=== PATIENT | female | born 1985 | race Hispanic/Latino ===

== ENCOUNTER 2017-03-19 21:49 | Day surgery (SDC) | payer OTHER, SELFPAY ==
[2017-03-19 22:36] LABS: #Basophils 0.1 thou/uL (0.0-0.2); #Eosinphils 0.1 thou/uL (0.0-0.7); #Lymphocytes 3.8 thou/uL (1.20-3.40); #Monocytes 0.7 thou/uL (0.11-0.59); #Neutrophils 6.2 thou/uL (1.40-6.50); %Basophils 0.6 % (0.0-1.0); %Eosinophils 1.1 % (0.0-10.0); %Lymphocytes 34.9 % (21.0-51.0); %Monocytes 6.6 % (0.0-10.0); %Neutrophils 56.8 % (42.0-75.0); Hemoglobin 10.5 g/dL (12.0-16.0); Mean Corpuscular Hemoglobin 25.1 pg (27.0-31.0); Mean Corpuscular Volume 78.5 fl (81.0-99.0); Mean Platelet Volume 9.2 fL (7.4-10.4); Platelet Count 267 thou/uL (130-400); Red Blood Cell (RBC) Count 4.19 mill/uL (4.20-5.40); White Blood Cell (WBC) Count 10.9 thou/uL (4.8-10.8)
[2017-03-19] MEDS ORDERED: Morphine 4 MG/ML VIAL ONE (22:47)
[2017-03-19 22:57] LABS: ALT (SGPT) 15 U/L (8-55); AST (SGOT) 15 U/L (5-34); Alkaline Phosphatase 89 U/L (40-150); Anion Gap 12 mmol/L (10-20); BUN (Urea Nitrogen) 10 mg/dL (7.0-18.7); Bilirubin, Total 0.2 mg/dL (0.2-1.2); Calc. Creatinine Clearance 0 mL/min (70-130); Calcium 8.9 mg/dL (7.8-10.44); Carbon Dioxide 21 mmol/L (22-29); Chloride 107 mmol/L (98-107); Estimated GFR-MDRD Greater than 90; Globulin 3.2 g/dL (2.4-3.5); Glucose 109 mg/dL (70-105); Lipase 12 U/L (8-78); Potassium 3.5 mmol/L (3.5-5.1); Protein, Total 7.2 g/dL (6.0-8.3); Sodium 136 mmol/L (136-145)
[2017-03-20] MEDS ORDERED: Bupivacaine/Epinephrine 0.25% 30 ML VIAL ONE (00:59)
[2017-03-20] MEDS ORDERED: Fentanyl 100 MCG/2 ML VIAL ONE (01:21)
[2017-03-20 01:34] LABS: Hemoglobin 8.7 g/dL (12.0-16.0)
[2017-03-20 01:46] LABS: INR-International Normal Ratio 1.1; PTT 26.7 SEC (22.9-36.1); Prothrombin Time 13.8 SEC (12.0-14.7)
--- NOTE | 2017-03-20 03:15 | HP ---
DATE OF ADMISSION: 03/20/2017 TIME OF SERVICE: 0100 REASON FOR ADMISSION: Possible ectopic . HISTORY OF PRESENT ILLNESS: Ms. Gonzalez is a 31-year-old 3, para 2 who reports approximatel y 8 weeks of amenorrhea. She reports sudden onset of right lower quadrant pain, but then became more diffuse abdominal tonight around 2100 hours. The patient states she has had a positive te st for several weeks and has had some spotting as well. OB AND LANE ATTENDANT HISTORY: x2, previous shoulder dystocia and previous normal delivery with induction o f labor. Denies history of abnormal Pap. Positive history of chlamydia in the past. PAST MEDICAL HISTORY: Denies. PAST SURGICAL HISTORY: Denies. ALLERGIES: The reports PENICILLIN allergy that she had a rash when she took at age 17. She denies s hortness of breath, swelling of face, mouth, lips or tongue or wheezing with this allergic reaction. She is uncertain as to whether or not she has had cephalosporins in the past. MEDICATIONS: None. SOCIAL HISTORY: Denies tobacco, alcohol or IV drug abuse. FAMILY HISTORY: Noncontributory. REVIEW OF SYSTEMS: Noncontributory. PHYSICAL EXAMINATION: GENERAL: Obese female in no acute distress at this time, status post 4 mg of morphine in th e ER. VITAL SIGNS: Her pulse is 82, her blood pressure is 100/50, respirations 18. HEENT: Within normal limits. LUNGS: Clear to auscultation bilaterally. HEART: Regular rhythm. ABDOMEN: Diffuse, guarding and discomfort on exam, especially noticeable in lower quadrants. PELVIC: Vulva is without lesions. Vagina without discharge. Speculum exam deferred. EXTREMITIES: Without clubbing, cyanosis or edema. LABORATORY STUDIES: Beta hCG was 29,000. Base met is within normal limits and her hematocrit is 33% with normal platelet count and normal white count. RADIOLOGY: The patient had an ultrasound performed both abdominally and vaginally technique is excep tionally poor; however, the uterus appears to be perhaps somewhat inhomogeneous, but no defined gesta tional sac. Her IUP is noted, there appears to be some free fluid in the adnexa with the preponderan ce of mixed echotextures in the adnexa, right greater than left. IMPRESSION: Probable right ectopic , although with poor technique ultrasound that the possi bility of a ruptured hemorrhagic corpus luteum cyst and a nonviable missed AB cannot be ruled out. PLAN: We will consent the patient for laparoscopic salpingectomy and D&C, typed and crossed for 1 un it and take the patient to the operating room for these procedures. We will administer Ancef for anita gical prophylaxis.
--- NOTE | 2017-03-20 03:34 | OP ---
DATE OF PROCEDURE: 03/20/2017 PREOPERATIVE DIAGNOSES: Suspected hemoperitoneum with ruptured right ectopic . POSTOPERATIVE DIAGNOSES: Suspected hemoperitoneum with ruptured right ectopic . PROCEDURE: Laparoscopic right distal salpingectomy for ectopic, ruptured. SURGEON: Rodger Ling M.D. SUPERVISOR STITCHING DEPARTMENT: Rachel Castaneda M.D., PGY-3. ANESTHESIA: Paul Leonard M.D., General endotracheal. ESTIMATED BLOOD LOSS: 100 mL intraoperatively, 1000 mL hemoperitoneum. MEDICATIONS: Two grams Ancef preincision. DVT PROPHYLAXIS: SCDs. OPERATIVE FINDINGS: 1. Approximately 1000 mL hemoperitoneum at entry into the abdominal cavity with active bleeding from the right distal fallopian tube. 2. Approximately 2-3 cm mass in the right distal fallopian tube consistent with a ruptured ectopic p regnancy. 3. Normal appearing left tube and ovary. 4. Normal appearing liver edge, gallbladder. 5. Hemostasis with counts correct at the end of the procedure. DISPOSITION: Recovery room, day stay and discharged home in good condition. Follow up at [facility] in 3-5 weeks. DESCRIPTION OF OPERATIVE PROCEDURE: After obtaining proper informed consent, the patient was taken t o the operating room where general endotracheal anesthesia was achieved without difficulty. Patient was prepped and draped in dorsal lithotomy in Steve stirrups. Five mL of Marcaine injected at the ba se of umbilicus and a 5 mm incision made. Veress needle placed inside the abdominal cavity. Confirm ation of entry into the peritoneal cavity via a saline drop test. Insufflation carried out with carb on dioxide to a max pressure of 15, volume approximately 3.5 liters. Once this pressure was obtained a 5 mm trocar using Optiview technique was introduced in the abdominal cavity confirming entry into the peritoneal cavity without trauma to underlying viscera. A large amount of blood in the pelvis wa s noted. The patient was placed in steep Trendelenburg position, right and left lateral trocars late ral to the epigastric vessels were placed without difficulty and a 10 mm noncutting trocar on the pat ient's left and a 5 mm on the right. Suction irrigation was carried out and the operative findings w ere noted. The distal aspect of the right fallopian tube was the obvious source of the bleeding and still had an ectopic inside which was photo documented. It was elevated using atraumatic g raspers and then using the LigaSure device, the mesosalpinx was coagulated and transected removing th e specimen. The specimen was then retrieved in the specimen retrieval bag and sent for pathologic an alysis. Further suction irrigation and inspection was carried out. The findings as noted the operat nikos findings were noted. No areas of bleeding were noted and coagulated mesosalpinx of the right fal lopian tube and no other sources of bleeding were noted. The abdomen was desufflated of carbon dioxi de. Trocars removed x3. Skin reapproximated x3 using 4-0 Monocryl and Dermabond and the patient wan kened, extubated, and taken to recovery room in good condition. The patient tolerated the procedure well.
--- NOTE | 2017-03-20 08:04 | ULT ---
PRELIMINARY REPORT/[facility]/EMERGENCY AFTER HOURS PROCEDURE: EXAM: US Uterus, Limited CLINICAL HISTORY: 31 years old, female; Pain and signs and symptoms; Lmp or gestational age (in weeks): Unknown; Antepa rtum complications; Bleeding; complicated by abdominal or pelvic pain; Other: Ml abd to ml pelvic; ; Patient HX: Hcg 73543, pain, bleeding TECHNIQUE: Real-time ultrasound of the maternal uterus (limited) with image documentation. COMPARISON: No relevant prior studies available. FINDINGS: Fetus: There is a heterogeneous soft tissue mass extending from the LEFT to RIGHT adnexa measuring ap proximately 15 cm with scattered foci of flow suspicious for ruptured ectopic . Uterus: The uterus measures 11.9 x 6.5 x 7.1 cm. No intrauterine gestation. Adnexa: The bilateral ovaries not visualized. Free fluid: There is complex fluid in the cul-de-sac. Bladder: There is nonspecific debris in the urinary bladder. IMPRESSION: 1. Findings suspicious for ectopic . 2. There is nonspecific debris in the urinary bladder. EXAM: US , Transvaginal EXAM DATE/TIME: Exam ordered 03/20/2017 12:16 AM CLINICAL HISTORY: 31 years old, female; Pain and signs and symptoms; Lmp or gestational age (in weeks): Unknown; Antepa rtum complications; Bleeding; complicated by abdominal or pelvic pain; Other: Ml abd to ml pelvic; ; Patient HX: Hcg 94918, pain, bleeding TECHNIQUE: Real-time transvaginal obstetrical ultrasound of the maternal pelvis and a first trimester with image documentation. Transvaginal imaging was used for better evaluation of the fetus and adnexa . COMPARISON: No relevant prior studies available. FINDINGS: Gestation: There is a heterogeneous soft tissue mass extending from the LEFT to RIGHT adnexa measurin g approximately 15 cm with scattered foci of flow suspicious for ruptured ectopic . Uterus/cervix: The uterus measures 11.9 x 6.5 x 7.1 cm. No intrauterine gestation. Ovaries: The bilateral ovaries not visualized. Free fluid: There is complex fluid in the cul-de-sac. Bladder: There is nonspecific debris in the urinary bladder. IMPRESSION: 1. Findings suspicious for ectopic . 2. There is nonspecific debris in the urinary bladder. THIS REPORT CONTAINS FINDINGS THAT MAY BE CRITICAL TO PATIENT CARE. The findings were verbally commun icated via telephone conference with Dr Rand at 1:05 AM GENERAL INTERNAL MEDICINE PHYSICIAN on 03/20/2017. The findings were ackn owledged and understood. Thank you for allowing us to participate in the care of your patient. Dictated and Authenticated by: Juan Edwards MD 03/20/2017 1:08 AM Central Time ([place] & [place]) FINAL REPORT TRANSABDOMINAL AND TRANSVAGINAL PELVIC ULTRASOUND: (MOY SCALE, COLOR FLOW, AND SPECTRAL DOPPLER) I agree with the preliminary report given by Dr. Juan Edwards of [facility]. POS: [facility]
[2017-03-20] MEDS ORDERED: Ketorolac Tromethamine 30 MG/ML VIAL ONE (15:52)
[2017-03-20] MEDS ORDERED: Lidocaine 1% PF 5 ML VIAL ONE (15:52)
[2017-03-20] MEDS ORDERED: PROPOFOL 200 MG/20 ML VIAL ONE (15:52)
[2017-03-20] MEDS ORDERED: Ondansetron HCl/PF 4 MG/2 ML Vial ONE (15:52)
[2017-03-20] MEDS ORDERED: Succinylcholine Chloride 20 MG/ML 10 ml SYRINGE FS ONE (15:52)
[2017-03-20] MEDS ORDERED: PHENYLEPHRINE-NS 100 MCG/ML 10 ML SYRINGE ONE (15:52)
[2017-03-20] MEDS ORDERED: Dexamethasone 20 MG/5 ML VIAL ONE (15:52)
[2017-03-20] MEDS ORDERED: ePHEDrine/0.9% NaCl/PF SYRINGE 50 mg/10 ml ONE (15:52)
== END 2017-03-20 ==
LOC: ERS 21:49 → SDC/OP 03-20 01:53
PROVIDERS: ATTEND Obstetrics & Gynecology
PROC: 0UB54ZZ Excision of Right Fallopian Tube, Percutaneous Endoscopic Approach (ICD-10-PCS; principal; 2017-03-20)
PROC: 10T24ZZ Resection of Products of Conception, Ectopic, Percutaneous Endoscopic Approach (ICD-10-PCS; principal; 2017-03-20)
DX: O00.101 Right tubal pregnancy without intrauterine pregnancy (principal); O99.330 Smoking (tobacco) complicating pregnancy, unspecified trimester; F17.210 Nicotine dependence, cigarettes, uncomplicated; Z88.0 Allergy status to penicillin; Z79.899 Other long term (current) drug therapy
CPT/HCPCS: 36415; 76856; 80053; 83690; 84702; 85014; 85018; 85025; 85610; 85730; 86900; 86901; 88305; 96361; 96374; J1100; J1885; J2001; J2270; J2405; J2704; J3010

== ENCOUNTER 2017-07-08 22:32 | Emergency (ER) | payer SELFPAY ==
[2017-07-08 23:27] LABS: Hemoglobin 10.9 g/dL (12.0-16.0); Mean Corpuscular Hemoglobin 21.9 pg (27.0-31.0); Mean Corpuscular Volume 68.5 fl (81.0-99.0); Mean Platelet Volume 9.8 fL (7.4-10.4); Platelet Count 281 thou/uL (130-400); RBC Distribution Width 15.9 % (11.5-14.5); Red Blood Cell (RBC) Count 4.96 mill/uL (4.20-5.40); White Blood Cell (WBC) Count 9.6 thou/uL (4.8-10.8)
[2017-07-08 23:45] LABS: #Basophils 0.1 thou/uL (0.0-0.2); #Eosinphils 0.2 thou/uL (0.0-0.7); #Lymphocytes 2.5 thou/uL (1.20-3.40); #Monocytes 0.6 thou/uL (0.11-0.59); #Neutrophils 6.4 thou/uL (1.40-6.50); %Basophils 0.8 % (0.0-1.0); %Eosinophils 1.8 % (0.0-10.0); %Lymphocytes 25.7 % (21.0-51.0); %Monocytes 5.7 % (0.0-10.0); %Neutrophils 66.1 % (42.0-75.0); MDiff Complete? YES; Microcytosis SLIGHT = 6-15 cells (100X) (0-5/hpf); PLT Morphology Comment Appears Adequate
[2017-07-08 23:46] LABS: ALT (SGPT) 27 U/L (8-55); AST (SGOT) 22 U/L (5-34); Albumin 4.3 g/dL (3.5-5.0); Alkaline Phosphatase 78 U/L (40-150); Anion Gap 13 mmol/L (10-20); BUN (Urea Nitrogen) 12 mg/dL (7.0-18.7); Bilirubin, Total 0.3 mg/dL (0.2-1.2); Calc. Creatinine Clearance 0 mL/min (70-130); Calcium 9.1 mg/dL (7.8-10.44); Carbon Dioxide 21 mmol/L (22-29); Chloride 106 mmol/L (98-107); Estimated GFR-MDRD Greater than 90; Globulin 3.1 g/dL (2.4-3.5); Glucose 98 mg/dL (70-105); Protein, Total 7.4 g/dL (6.0-8.3); Sodium 136 mmol/L (136-145)
--- NOTE | 2017-07-09 08:44 | ULT ---
PRELIMINARY REPORT/[facility]/EMERGENTY AFTER-HOURS PROCEDURE US First Trimester, Transabdominal US , Transvaginal US Duplex Arterial/Venous of the Pelvis, Complete CLINICAL HISTORY: 31 years old, female; Signs and symptoms; Lmp or gestational age (in weeks): 5w2d; Antepartum complic ations; Other: N/v, previous ectopic (03/10); ; Prior surgery; Surgery date: 1-6 months; Surg johnny type: Partial removal of fallopian tube due to previous ectopic, patient unsure which tube. Patient HX: Previous ectopic in feb 2017; Additional info: Unknown lmp TECHNIQUE: Real-time transabdominal and transvaginal obstetrical ultrasound of the maternal pelvis and a first t rimester with image documentation. Transvaginal imaging was used for better evaluation of t he fetus and adnexa. Real-time duplex ultrasound scan of the pelvis integrating B-mode two-dimensional vascular structure, Doppler spectral analysis and color flow Doppler imaging. COMPARISON: No relevant prior studies available. FINDINGS: Transabdominal ultrasound showed a small intrauterine fluid collection. Transvaginal ultrasound was p erformed for evaluation of yolk sac and pole. Duplex ultrasound scan with color Doppler flow an d spectral waveform analysis was also performed for evaluation of pelvic and ovarian blood flow and torsion. Gestation: Small intrauterine fluid collection probably representing a gestational sac (MSD: 0.62cm 5 w2d), although no yolk sac or pole visualized. Placenta/amniotic fluid: Cannot be adequately evaluated due to the early gestational age. Uterus/cervix: See above. No myometrial mass. Ovaries: Unremarkable. No mass. Normal ovarian blood flow. No evidence of torsion. Free fluid: Trace. IMPRESSION: Small intrauterine fluid collection probably representing a gestational sac, although no yolk sac or pole visualized; recommend close followup with beta-hCG and ultrasound. Thank you for allowing us to participate in the care of your patient. Dictated and Authenticated by: Andres Nuñez MD 07/09/2017 12:54 AM Central Time ([place] & [place]) FINAL REPORT ULTRASOUND PELVIC TRANSVAGINAL WITH DOPPLER: Date; 07/08/17 HISTORY: Pelvic pain. Evaluate for ectopic. Positive home test. COMPARISON: Pelvic ultrasound dated 03/20/17. FINDINGS: Findings and impression are concordant with the preliminary report by [facility]. POS: [facility]
== END 2017-07-09 03:25 | disposition home or self-care (01) ==
LOC: ERS 22:32
DX: Z34.01 Encounter for supervision of normal first pregnancy, first trimester (principal); F17.210 Nicotine dependence, cigarettes, uncomplicated; Z71.6 Tobacco abuse counseling; Z3A.01 Less than 8 weeks gestation of pregnancy
CPT/HCPCS: 36415; 76856; 80053; 84702; 85025; 86850; 86900; 86901; 99406

== ENCOUNTER 2017-08-29 04:23 | Emergency (ER) | payer MEDICAID ==
[2017-08-29 04:55] LABS: #Basophils 0.1 thou/uL (0.0-0.2); #Eosinphils 0.2 thou/uL (0.0-0.7); #Lymphocytes 2.4 thou/uL (1.20-3.40); #Monocytes 0.7 thou/uL (0.11-0.59); #Neutrophils 6.4 thou/uL (1.40-6.50); %Basophils 0.6 % (0.0-1.0); %Lymphocytes 24.9 % (21.0-51.0); %Monocytes 6.7 % (0.0-10.0); %Neutrophils 65.8 % (42.0-75.0); Hemoglobin 10.8 g/dL (12.0-16.0); Mean Corpuscular HGB CONC 32.6 g/dL (32.0-36.0); Mean Corpuscular Hemoglobin 22.2 pg (27.0-31.0); Mean Corpuscular Volume 68.1 fl (81.0-99.0); Mean Platelet Volume 10.7 fL (7.4-10.4); Platelet Count 185 thou/uL (130-400); RBC Distribution Width 14.8 % (11.5-14.5); Red Blood Cell (RBC) Count 4.84 mill/uL (4.20-5.40); White Blood Cell (WBC) Count 9.7 thou/uL (4.8-10.8)
--- NOTE | 2017-08-29 07:55 | ULT ---
PRELIMINARY REPORT/[facility]/EMERGENCY AFTER HOURS PROCEDURE: EXAM: US Uterus, Limited CLINICAL HISTORY: 31 years old, female; Signs and symptoms; Lmp or gestational age (in weeks): 13w2d; Antepartum compli cations; Bleeding; TECHNIQUE: Real-time ultrasound of the maternal uterus (limited) with image documentation. COMPARISON: No relevant prior studies available. FINDINGS: Single live intrauterine noted. heartbeat measured at 152 beats per minute. Fetus is in transverse position. Estimated age of 13 weeks and 2 days Amniotic fluid is normal qualitatively. Posterior placenta with previa observed. No abruption Limited anatomy is unremarkable as visualized. IMPRESSION: Single live intrauterine with estimated due date of 03/04/2018. Correlate with menstrual cycle history Placenta previa as described. No abruption. Continued sonographic followup recommended Thank you for allowing us to participate in the care of your patient. Dictated and Authenticated by: West Chaudhary MD 08/29/2017 6:08 AM Central Time ([place] & [place]) FINAL REPORT OBSTETRIC SONOGRAM 1ST TRIMESTER TRANSABDOMINAL IMAGING WITH DUPLEX EVALUATION: DATE: 08/29/17. TIME: Performed on an emergency basis at 0449 hours. HISTORY: Early . Bleeding. FINDINGS: Findings agree with the preliminary report by Dr. Thrasher from [facility]. Single viable intra uterine gestation with estimated gestational age of 12/11/18. Placenta previa is confirmed. Continu ed sonographic followup required. POS: [facility]
== END 2017-08-29 06:24 | disposition home or self-care (01) ==
LOC: EEVIPCON 04:23 → ERS 04:23
DX: O20.0 Threatened abortion (principal); O44.11 Complete placenta previa with hemorrhage, first trimester; O99.331 Smoking (tobacco) complicating pregnancy, first trimester; F17.210 Nicotine dependence, cigarettes, uncomplicated; Z3A.13 13 weeks gestation of pregnancy
CPT/HCPCS: 36415; 76856; 84702; 85025; 86900; 86901; 93976

== ENCOUNTER 2017-09-04 16:19 | Emergency (ER) | payer MEDICAID, SELFPAY ==
[2017-09-04 18:23] LABS: Bilirubin Negative (Negative); Blood, Urine Negative (Negative); Clarity CLEAR (Clear); Glucose, Urine (Dipstick) Negative (Negative); Leukocyte Negative (Negative); Nitrite Negative (Negative); Protein, Urine (Dipstick) Negative (Neg-Trace); Urobilinogen 0.2 mg/dL (0.2-1.0)
== END 2017-09-04 18:45 | disposition home or self-care (01) ==
LOC: ERS 16:19
DX: O99.89 Other specified diseases and conditions complicating pregnancy, childbirth and the puerperium (principal); R10.9 Unspecified abdominal pain; F17.210 Nicotine dependence, cigarettes, uncomplicated; Z3A.12 12 weeks gestation of pregnancy
CPT/HCPCS: 36415; 81003; 84702

== ENCOUNTER 2018-02-17 14:47 | Day surgery (SDC) | payer MEDICAID, OTHER ==
[2018-02-17 15:25] VITALS: BMI 47.0
--- NOTE | 2018-02-17 16:06 | PDOC.LDHP ---
Labor and Delivery H&P Chief complaint: decreased movement HPI: This 32 y/o at 37.6 wks with ENZO 03/04/18 by 13.2 wk seng was sent over from clinic for decreased movement. She reports she feels about 3 kicks per hour, which is reduced from previous kick counts. She denies any LoF, vaginal bleeding, new pelvic/lower abdominal pain, headache, SOB, CP, changes in vision or LE swelling. She reports good control of her diabetes recently. She has no other complaints or concerns at this time. Current gestational age (weeks): 37 (.6) Due date: 03/04/18 Dating criteria: second trimester ultrasound Grav: 4 Para: 2 OB History Details: salpingectomy in 2017 for ectopic Current complications: gestational diabetes, other (iron deficiency anemia) Abnormal US findings: Yes (resolved placenta previa ) Current medications: pre- vitamins, other (metformin) Previous surgical history: surgery for ectopic Social history: none - Physical Exam Vital signs reviewed and normal: yes General: NAD, resting Heart: RRR Lungs: CTAB Abdomen: NTTP Extremeties: no edema [place] contractions every: baseline 145, accelerationsx3, moderate variability. reactive strip - Vaginal Exam cm dilated: 1 Effacement: 50% Station: -3 - OB Labs Blood type: unknown RH: negative Antibody Screen: negative HIV: negative RPR: negative HEPSAg: negative 1 hour GCT: positive GBS: positive Urine drug screen: not done Rubella: immune - Assessment Concern for decreased movement A2GDM Iron deficiency anemia Transverse lie on 37.6 wk US - Plan -: Reassuring BPP/NST - BPP 10/30 (VIRIDIANA 10), reactive strip - ok to DC home with labor precautions - go ahead with scheduled IOL on 02/20 <Aj Sena - Last Filed: 02/17/18 16:51> <Charity Noel - Last Filed: 02/18/18 22:25> Allergies/Adverse Reactions: Allergies Allergy/AdvReac Type Severity Reaction Status Date / Time Penicillins Allergy Intermediate Hives Verified 02/17/18 15:26 Attending Addendum - Attending Addendum Date/Time: 02/18/18 1029 I personally evaluated the patient and discussed the management with Dr. Sena on 02/17/2018 I agree with the History, Examination, Assessment and Plan documented above with any addition or exceptions noted below- 32 yo @ 37+ weeks sent from office due to decreased FM. Category 1 FHTs and BPP 10/30. No ctx. Bedside USG after patient emptied bladder showed vertex presentation. D/C home and return to L&D fpr scheduled induction on Saturday evening.. <Charity Noel - Last Filed: 02/18/18 22:25>
--- NOTE | 2018-02-17 17:32 | ULT ---
ULTRASOUND BIOPHYSICAL PROFILE: HISTORY: Decreased movement. FINDINGS: A single live intrauterine gestation is seen with a heart rate of 153 beats per minute. VIRIDIANA me asures 11.5 cm. Placenta is posteriorly located without evidence of placenta previa. BIOPHYSICAL PROFILE: TONE: 2 BREATHIN MOVEMENT2: 2 AMNIOTIC FLUID: 2 IMPRESSION: Ultrasound biophysical profile score is 8/8. POS: OFF
== END 2018-02-17 17:00 | disposition home or self-care (01) ==
LOC: EEVIPCON 14:47 → L&D/OP 14:47
PROVIDERS: ATTEND Family Medicine
DX: O36.8130 Decreased fetal movements, third trimester, not applicable or unspecified (principal); O24.419 Gestational diabetes mellitus in pregnancy, unspecified control; O99.013 Anemia complicating pregnancy, third trimester; D50.9 Iron deficiency anemia, unspecified; Z88.0 Allergy status to penicillin; Z3A.37 37 weeks gestation of pregnancy
CPT/HCPCS: 59025; 76815; 76819; 99282

== ENCOUNTER 2018-02-19 19:39 | Inpatient (IN) | payer OTHER ==
--- NOTE | 2018-02-19 15:09 | PDOC.FPROB ---
FMR OB H&P: HPI - History of Present Illness Chief Complaint: Medically indicated IOL Indentification: 32 year old at 38.2 wks History of Present Illness: 32 year old at 38.2 wks by 13.2 wk seng with ENZO of 03/04/2018 presents for medically indicated IOL for A2 GDM. Patient's BG has been at goal over the past 2 weeks per report. She did not bring in a glucose log at last visit. Patient has been attending weekly BPP/NST's which have been reassuring. Patient denies vaginal bleeding, vaginal discharge, LoF. She endorses occasional contractions. Patient endorses good movement. She did not check BG or take metformin today. Primary Care Physician: GILBERT Alvarez FMR OB H&P: Current - Care : 4 Para: 2011 Gestational age: 38.2 wks Due date: 03/04/2018 Dating Criteria: 13.2 wk sono - OB Labs HIV: negative RPR: negative HepBsAg: negative Urine drug screen: negative Gonorrhea: unknown Chlamydia: unknown 1 hour gtt: Abnormal 3 hour GTT: 99/213/190/100 A1c: 5.6 GBS: positive - First Trimester Ultrasound First trimester: 13.2w Previa - Anatomy Survey Anatomy survey: WNL, previa resolved, posterior placenta - Additional Ultrasound Additional: Hadlock 92% on 01/28/18 FMR OB H&P: History - Past Medical History PMH: Iron deficiency anemia - OB History OB History: A2 GDM, poorly controlled Iron deficiency anemia Hx of salpingectomy for ectopic in 2017 H/o macrosomic infant and shoulder dystocia in 1st GBS positive - HEALTH CARE / MEDICAL JOB TITLES History HEALTH CARE / MEDICAL JOB TITLES History: Hx of salpinectomy for ectopic in 2017 - Surgical History Sx History: Salpingectomy for ectopic in 2017 - Social History Social History: Denies alcohol, tobacco, or drug use - Family History Family History: Non-contributory FMR OB H&P: Medications - Current Home Medications: Medication Instructions Recorded Confirmed Type Iron Carb,Gl/FA/B12/C/Docusate 1 tab PO DAILY 08/11/16 02/20/18 History [Ferralet 90] Vitamin 1 tab PO DAILY 08/11/16 02/20/18 History metFORMIN HCl [Metformin HCl] 1 capsule PO QPM 02/17/18 02/20/18 History metFORMIN [Glucophage] 1 capsule PO DAILY 02/17/18 02/20/18 History Allergies/Adverse Reactions: Allergies Allergy/AdvReac Type Severity Reaction Status Date / Time Penicillins Allergy Intermediate Hives Verified 02/17/18 15:26 FMR OB H&P: ROS - Review of Systems General: denies: fever/chills, weight/appetite/sleep changes Eyes: denies: eye pain, vision changes ENT: denies: nasal congestion, rhinorrhea Cardiovascular: denies: chest pain, palpitation Respiratory: denies: cough, shortness of breath Gastrointestinal: denies: abdominal pain, nausea, vomiting Genitourinary (Female): denies: dysuria, hematuria Musculoskeletal: denies: pain, stiffness Neurologic: denies: weakness, loss of counsciousness Integumentary: denies: rash, lesions FMR OB H&P: Vital Signs - Maternal Vital signs: BP 135/78 P 92 R 18 T 98.2 - Heart Tones Baseline: 140 Variability: moderate Acceleration: present Deceleration: absent Category: category 1 FMR OB H&P: Physical Exam - Physical Exam General: NAD, awake, alert and oriented HEENT: normocephalic and atraumatic, MMM Neck: supple, trachea midline Heart: RRR, normal S1/S2 General: CTAB, no respiratory distress Abdomen: soft, gravid Musculoskeletal: normal gait and station, pulses present, other (trace edema to mid garcia BL) Skin: no rash, good tugor Lymphatic: no unusual bruising or bleeding Psychiatric: intact recent and remote memory, normal mood and affect - Pelvic Exam Vulva: normal hair distribution SVE: 1/50/-3/posterior/soft Fajardo score: 4 Presentation: vertex Estimated Weight: 8 lbs FMR OB H&P: A/P - Problem List (1) Term Status: Acute Code(s): Z34.80 - ENCOUNTER FOR SUPRN OF NORMAL , UNSP TRIMESTER (2) GDM, class A2 Status: Acute Code(s): O24.419 - GESTATIONAL DIABETES MELLITUS IN , UNSP CONTROL (3) Iron deficiency anemia Status: Acute Code(s): D50.9 - IRON DEFICIENCY ANEMIA, UNSPECIFIED Disposition: 32 year old at 38.2 wks by 13.2 wk sono presents for medically indicated IOL 1. Medically indicated IOL - Not well controlled A2 GDM - At 38.2 wks - Fajardo 4, will start with cytotec 2. A2GDM, poorly controlled - Patient on metformin, noncompliant - Accuchecks q2h, can space to q4 if WNL or move to q1hr if elevated 3. Iron deficiency anemia - Last Hgb 8, repeat pending - Type & Cross x2 units - Patient will need to continue iron supplementation post delivery; may be candidate for iron transfusion - Uterotonics at bedside 4. GBS positive - Vanc 1g q12 5. LGA infant - Hadlock 92%tile on 01/28/18 6. H/o shoulder dystocia, clavicle fx and macrosomic in 1st - Successful in 2nd w/o dystocia - Discussed with patient option for elective C/S and risks/benefits of each option - At this time, she desires to proceed with induction 7. Unsure rubella immunity, pending Dispo: Admit to L&D for IOL Discussion: Date/Time: 02/19/18 8415 This H&P was discussed with Dr. Pringle who agrees with the above documentation and plan. Signature: Anabel Alvarez, PGY-2 Rachel Castaneda MD, PGY-3 Attending Addendum - Attending Addendum Date/Time: 02/20/18 9704 I personally evaluated the patient and discussed the management with Dr. Castaneda. I agree with and repeated the History, Examination, Assessment and Plan documented above with any addition or exceptions noted below. Confirmed cephalic on BSUS. After discussing history and nondirective counseling patient desires to proceed with induction. Will closely monitor for slow progress.
[2018-02-20] MEDS ORDERED: Ibuprofen 800 MG TAB PO PRN (00:18)
[2018-02-20] MEDS ORDERED: Ondansetron PF 4 MG/2 ML Vial IVP PRN (00:18)
[2018-02-20] MEDS ORDERED: Promethazine HCl 25 MG/ML VIAL IM PRN (00:18)
[2018-02-20] MEDS ORDERED: Lidocaine 1% (PF) 30 ML VIAL SC PRN (00:18)
[2018-02-20] MEDS ORDERED: NS / Oxytocin 40 units/1000ml 1,000 ML IV PRN (00:18)
[2018-02-20] MEDS ORDERED: Acetaminophen 500 MG TAB PO PRN (00:18)
[2018-02-20] MEDS ORDERED: Docusate 100 MG CAP PO PRN (00:18)
[2018-02-20 01:37] VITALS: BMI 46.7
[2018-02-20 01:55] LABS: Hemoglobin 9.3 g/dL (12.0-16.0); Mean Corpuscular HGB CONC 32.1 g/dL (32.0-36.0); Mean Corpuscular Hemoglobin 21.8 pg (27.0-31.0); Mean Corpuscular Volume 68.1 fL (78.0-98.0); Mean Platelet Volume 9.4 fL (7.4-10.4); Platelet Count 153 thou/uL (130-400); RBC Distribution Width 21.2 % (11.5-14.5); Red Blood Cell (RBC) Count 4.25 mill/uL (4.20-5.40); White Blood Cell (WBC) Count 8.3 thou/uL (4.8-10.8)
[2018-02-20] MEDS: Lactated Ringer's 1,000 ML IV SCH ×3 (02:06→20:22)
[2018-02-20] MEDS: Misoprostol 100 MCG TAB VAG SCH ×5 (02:14→12:11)
[2018-02-20 02:25] LABS: HBSAg Index 0.25 S/CO (0-0.99); Hep B Surf Ag Non-Reactive S/CO (NonReactive)
[2018-02-20] MEDS: Vancomycin HCl 1 GM in Premix Bag 1 BAG IVPB SCH ×2 (02:30→14:56)
[2018-02-20 04:45] LABS: Syphilis Antibody Nonreactive (Nonreactive); Syphilis Antibody Index 0.03 S/CO (<1.00 Non-Reactive)
--- NOTE | 2018-02-20 05:33 | PDOC.LDPN ---
Labor & Delivery Progress Note - Subjective Subjective: painful contractions - Objective Vital signs reviewed and normal: yes General: resting [place] contractions every: 2-3 minutes - Assessment (1) Term Code(s): Z34.80 - ENCOUNTER FOR SUPRVSN OF NORMAL , UNSP TRIMESTER Current Visit: No Status: Acute (2) GDM, class A2 Code(s): O24.419 - GESTATIONAL DIABETES MELLITUS IN , UNSP CONTROL Current Visit: No Status: Acute (3) Iron deficiency anemia Code(s): D50.9 - IRON DEFICIENCY ANEMIA, UNSPECIFIED Current Visit: No Status: Acute -: 32 year old at 38.2 wks by 13.2 wk sono here for medically indicated IOL 1. Medically indicated IOL - s/p cytotec #1 - abdirahman too frequently for additional augmentation at this time - will plan to recheck in approx 1 hour 2. A2GDM, poorly controlled - Patient on metformin, noncompliant - Accuchecks q2h, can space to q4 if WNL or move to q1hr if elevated - Initial accuchecks 88, 95 3. Iron deficiency anemia - Hgb 9.3 today - s/p Type & Cross x2 units - Uterotonics at bedside 4. GBS positive - Vanc 1g q12 5. LGA - Hadlock 92%tile on 01/28/18 6. H/o shoulder dystocia, clavicle fx and macrosomic infant in 1st - Successful in 2nd w/o dystocia - Discussed with patient option for elective C/S and risks/benefits of each option - At this time, she desires to proceed with induction 7. Unsure rubella immunity, pending Recheck in 1 hour
[2018-02-20] MEDS ORDERED: Butorphanol Tartrate 1 MG/ML VIAL ONE (07:33)
[2018-02-20] MEDS: Butorphanol Tartrate 1 MG/ML VIAL SLOW IVP PRN ×3 (07:40→19:30)
[2018-02-20] MEDS ORDERED: NS w/ Oxytocin 10 units 500 ML ONE (18:13)
[2018-02-20] MEDS ORDERED: NS w/ Oxytocin 10 units 500 ML IV SCH (18:30)
[2018-02-20] MEDS ORDERED: Fentanyl 4 mcg/Bup 0.1% Cadd 100 ML ONE (19:54)
--- NOTE | 2018-02-20 23:38 | PDOC.LDPN ---
Labor & Delivery Progress Note - Subjective Subjective: comfortable - Objective Vital signs reviewed and normal: yes General: NAD, resting Uterine fundus: non tender SVE: By Antonio at 18:15 Dilation: 4 Effacement: 50% Station: -3 FHT: category 1, variability present - Assessment (1) Term Code(s): Z34.80 - ENCOUNTER FOR SUPRVSN OF NORMAL , UNSP TRIMESTER Status: Acute (2) GDM, class A2 Code(s): O24.419 - GESTATIONAL DIABETES MELLITUS IN , UNSP CONTROL Status: Acute (3) Iron deficiency anemia Code(s): D50.9 - IRON DEFICIENCY ANEMIA, UNSPECIFIED Status: Acute Plan: continue plan of care, pitocin for augmentation -: s/p 2 doses of cytotec with last round placed at 12:00. Contractions q3-4 minutes. Cervical check at 18:15 was 4/60/-3. Will start pitocin for augmentation. Q2H checks. Patient GBS positive s/p 2 doses of vancomycin. Continue vancomycin through delivery. BG has been wnl. Continue accuchecks. Category I strip. Continue current plan of care. <Anabel Alvarez - Last Filed: 02/20/18 23:35> - Assessment (1) Term Code(s): Z34.80 - ENCOUNTER FOR SUPRVSN OF NORMAL , UNSP TRIMESTER Status: Acute (2) GDM, class A2 Code(s): O24.419 - GESTATIONAL DIABETES MELLITUS IN , UNSP CONTROL Status: Acute (3) Iron deficiency anemia Code(s): D50.9 - IRON DEFICIENCY ANEMIA, UNSPECIFIED Status: Acute <Ángel Pringle - Last Filed: 02/21/18 00:46> Attending Addendum - Attending Addendum Date/Time: 02/21/18 0046 I personally discussed the management with Dr. Alvarez. I agree with the History, Examination, Assessment and Plan documented above with any addition or exceptions noted below. <Ángel Pringle - Last Filed: 02/21/18 00:46>
[2018-02-21] MEDS ORDERED: ePHEDrine/0.9% NaCl/PF SYRINGE 50 mg/10 ml SLOW IVP PRN (00:22)
[2018-02-21] MEDS ORDERED: diphenhydrAMINE 50 MG/ML VIAL IVP PRN (00:22)
[2018-02-21] MEDS ORDERED: Acetaminophen 325 MG TAB PO PRN (00:22)
[2018-02-21] MEDS ORDERED: Eucerin (Mineral Oil/Petrolatum,White) 30 gm Jar TOP PRN (00:22)
[2018-02-21] MEDS ORDERED: Promethazine HCl 25 MG/ML VIAL IM PRN (00:22)
[2018-02-21] MEDS ORDERED: Lactated Ringer's 500 ML IV PRN (00:22)
[2018-02-21] MEDS ORDERED: Ondansetron PF 4 MG/2 ML Vial IVP PRN ×2 (00:22→08:59)
[2018-02-21] MEDS ORDERED: Naloxone HCl 0.4 mg/ml Vial IVP PRN ×2 (00:22)
[2018-02-21] MEDS ORDERED: Fentanyl 4 mcg/Bupivacaine 0.1% Cassette 100 ML EPIDURAL SCH (00:30)
[2018-02-21] MEDS ORDERED: Communication Order-Pharmacy FS SCH (00:30)
[2018-02-21] MEDS ORDERED: Fentanyl 4 mcg/Bup 0.1% Cadd 100 ML ONE ×2 (01:16→04:37)
[2018-02-21] MEDS ORDERED: Betamet Acet/Betamet Na Ph 30 MG/5 ML VIAL ONE (01:56)
[2018-02-21] MEDS: Vancomycin HCl 1 GM in Premix Bag 1 BAG IVPB SCH (03:08)
--- NOTE | 2018-02-21 03:27 | PDOC.LDPN ---
Labor & Delivery Progress Note - Subjective Subjective: painful contractions - Objective Vital signs reviewed and normal: yes General: NAD, resting FHT: category 1, variability present [place] contractions every: q3-4m, pit @ 8 - Assessment (1) Term Code(s): Z34.80 - ENCOUNTER FOR SUPRVSN OF NORMAL , UNSP TRIMESTER Current Visit: No Status: Acute (2) GDM, class A2 Code(s): O24.419 - GESTATIONAL DIABETES MELLITUS IN , UNSP CONTROL Current Visit: No Status: Acute (3) Iron deficiency anemia Code(s): D50.9 - IRON DEFICIENCY ANEMIA, UNSPECIFIED Current Visit: No Status: Acute -: Patient now 7-/-3 and continues to be ballotable per RN. Sugars reassuring. In light of current OR availability will hold off on a high AROM and of course will discuss with patient. Plan for recheck in another 2 hours. Vanc for ppx.
--- NOTE | 2018-02-21 06:38 | PDOC.LDPN ---
Labor & Delivery Progress Note - Objective Vital signs reviewed and normal: yes General: NAD Uterine fundus: non tender SVE: c/c/+1 after AROM with FSE placement and copious clear fluid FHT: category 1, variability present (+accels) [place] contractions every: q3-4m AROM: clear fluid FSE placed: yes - Assessment (1) Term Code(s): Z34.80 - ENCOUNTER FOR SUPRVSN OF NORMAL , UNSP TRIMESTER Current Visit: No Status: Acute (2) GDM, class A2 Code(s): O24.419 - GESTATIONAL DIABETES MELLITUS IN , UNSP CONTROL Current Visit: No Status: Acute (3) Iron deficiency anemia Code(s): D50.9 - IRON DEFICIENCY ANEMIA, UNSPECIFIED Current Visit: No Status: Acute Plan: continue plan of care (will plan on laboring down and then begin pushing)
[2018-02-21] MEDS ORDERED: Milk Of Magnesia 30 ML UDCUP PO PRN (08:59)
[2018-02-21] MEDS ORDERED: Preparation H Ointment 28 GM TUBE PR PRN (08:59)
[2018-02-21] MEDS ORDERED: Benzocaine/Menthol 20-0.5% 60 ML CAN TOP PRN (08:59)
[2018-02-21] MEDS ORDERED: Bisacodyl 10 MG SUPP PR PRN (08:59)
[2018-02-21] MEDS ORDERED: Adacel (T-DAP) 0.5 ML VIAL IM ONE (08:59)
[2018-02-21] MEDS ORDERED: NS / Oxytocin 40 units/1000ml 1,000 ML IV SCH (08:59)
[2018-02-21] MEDS ORDERED: Bupivacaine HCl 0.5%/Epinephrine 1:200,000/PF 30 ml Vial ONE (11:11)
[2018-02-21] MEDS ORDERED: Lidocaine 2% MPF 10 ML AMP (For Epidural Use) ONE (11:11)
--- NOTE | 2018-02-21 12:53 | PDOC.OPDEL ---
OB Operative/Delivery Note Delivery Dr/Surgeon: Philip Alvarez Pre-Delivery Diagnosis: medically indicated induction Procedure/Post Delivery Dx: spontaneous vaginal delivery Weeks gestation: 38 (38.3 wks) Anesthesia: epidural - Findings A - 1 min: 9 - 5 min: 9 - Additional Findings/Plan Placenta delivered: spontaneous Repaired Obstetrical Laceration: vaginal Estimated blood loss: QBL 232 mL Post delivery plan: routine recovery
[2018-02-21] MEDS: Ibuprofen 800 MG TAB PO SCH ×2 (14:13→21:07)
[2018-02-21] MEDS: Docusate Calcium (SURFAK) 240 MG CAP PO SCH ×2 (17:18→21:07)
[2018-02-21] MEDS: Prenatal Vitamin 1 TAB PO SCH (17:18)
[2018-02-21] MEDS: Ferrous Sulfate 325 MG TAB PO SCH (17:22)
[2018-02-22] MEDS: Misoprostol 100 MCG TAB VAG SCH ×3 (00:12→00:14)
[2018-02-22] MEDS: Lactated Ringer's 1,000 ML IV SCH (00:14)
[2018-02-22] MEDS: Ibuprofen 800 MG TAB PO SCH ×3 (05:02→21:37)
--- NOTE | 2018-02-22 06:18 | PDOC.PP ---
Post Progress Note Post Day #: 1 PO intake tolerated: yes Flatus: yes Ambulation: yes Vital Signs (12 hours) Temp Pulse Resp BP Pulse Ox 02/22/18 04:00 97.6 F 77 16 115/71 02/21/18 23:53 97.7 F 84 16 115/69 02/21/18 20:00 98.0 F 80 20 120/69 98 Weight Weight 123.377 kg - Physical Examination General: NAD Cardiovascular: no m/r/g, RRR Respiratory: clear to auscultation bilaterally, non-labored breathing Abdominal: + bowel sounds, lochia, no distention, appropriately TTP Psychiatric: A&Ox3, normal affect Result Diagrams: 02/20/18 01:30 Additional Labs: Post Labs Blood Type O POSITIVE 02/20/18 01:30 Hep Bs Antigen Non-Reactive S/CO (NonReactive) 02/20/18 01:30 Rubella IgG Antibody 9.81 index (Immune >0.99) 02/20/18 01:30 (1) Term Code(s): Z34.80 - ENCOUNTER FOR SUPRVSN OF NORMAL , UNSP TRIMESTER Status: Acute (2) GDM, class A2 Code(s): O24.419 - GESTATIONAL DIABETES MELLITUS IN , UNSP CONTROL Status: Acute (3) Iron deficiency anemia Code(s): D50.9 - IRON DEFICIENCY ANEMIA, UNSPECIFIED Status: Acute - Assessment/Plan 32 year old G4 now P3013 delivered TAGA M infant at 7:46 on 02/21 via . Apgars 9/9 1. Term , delivered - S/p - Routine PP care - Contraception: OCP's - Consider d/c home today with follow up in 2 weeks at [facility] 2. A2 GDM - Not well controlled during - BG during delivery seemed well controlled - d/c'd metformin post delivery, but still doing ACHS accuchecks - Will need to check for DM type II 6-12 weeks via GGT 3. Iron deficiency anemia - H/H this AM pending; prior to delivery Hg 9.3 - Minimal blood loss during delivery 4. GBS positive - Penicillin allergic - s/p 3 doses of Vancomycin, adequately treated Dispo: Patient with two other children at home. Desires to go home today. Pending 24h bilirubin for infant, patient may be able to go home today. <Anabel Alvarez - Last Filed: 02/22/18 06:19> Vital Signs (12 hours) Temp Pulse Resp BP Pulse Ox 02/22/18 09:00 97.5 F L 77 18 111/73 99 02/22/18 08:55 99 02/22/18 04:00 97.6 F 77 16 115/71 Weight Weight 123.377 kg Result Diagrams: 02/22/18 06:16 Additional Labs: Post Labs Blood Type O POSITIVE 02/20/18 01:30 Hep Bs Antigen Non-Reactive S/CO (NonReactive) 02/20/18 01:30 Rubella IgG Antibody 9.81 index (Immune >0.99) 02/20/18 01:30 <Ann Borja - Last Filed: 02/22/18 14:16> Attending Addendum - Attending Addendum Date/Time: 02/22/18 1411 I personally evaluated the patient and discussed the management with Dr. Alvarez I agree with the History, Examination, Assessment and Plan documented above with any addition or exceptions noted below. Stable PPD #1. Meeting appropriate milestones. Glucose has been elevated . Would recommend starting metformin. Anticipate d/c to home on PPD # 2 <Ann Borja - Last Filed: 02/22/18 14:16>
[2018-02-22 07:03] LABS: Hemoglobin 8.5 g/dL (12.0-16.0); Mean Corpuscular HGB CONC 30.1 g/dL (32.0-36.0); Mean Corpuscular Hemoglobin 20.9 pg (27.0-31.0); Mean Corpuscular Volume 69.5 fL (78.0-98.0); RBC Distribution Width 21.1 % (11.5-14.5); Red Blood Cell (RBC) Count 4.08 mill/uL (4.20-5.40); White Blood Cell (WBC) Count 11.3 thou/uL (4.8-10.8)
[2018-02-22 07:32] LABS: Mean Platelet Volume 7.3 fL (7.4-10.4); Platelet Count 131 thou/uL (130-400)
[2018-02-22] MEDS: Ferrous Sulfate 325 MG TAB PO SCH ×2 (08:56→17:10)
[2018-02-22] MEDS: Docusate Calcium (SURFAK) 240 MG CAP PO SCH ×2 (08:57→21:37)
[2018-02-22] MEDS: Prenatal Vitamin 1 TAB PO SCH (08:57)
[2018-02-23] MEDS ORDERED: Cetirizine HCl 10 MG TAB PO SCH (02:00)
[2018-02-23] MEDS: Prenatal Vitamin 1 TAB PO SCH (08:34)
[2018-02-23] MEDS: Ibuprofen 800 MG TAB PO SCH ×2 (08:34→14:25)
[2018-02-23] MEDS: Docusate Calcium (SURFAK) 240 MG CAP PO SCH (08:35)
[2018-02-23] MEDS: Ferrous Sulfate 325 MG TAB PO SCH (08:35)
[2018-02-23 08:59] VITALS: BP 122/76; TEMP 97.5
--- NOTE | 2018-02-23 10:32 | PDOC.PP ---
Post Progress Note Post Day #: 2 Subjective: Patient doing well. No significant overnight events. Patient feeling better this AM. She is ready to go home. PO intake tolerated: yes Flatus: yes Ambulation: yes Vital Signs (12 hours) Temp Pulse Resp BP Pulse Ox 02/23/18 08:57 97.5 F L 74 24 H 122/76 98 Weight Weight 123.377 kg - Physical Examination General: NAD Cardiovascular: no m/r/g, RRR Respiratory: clear to auscultation bilaterally, non-labored breathing Abdominal: + bowel sounds, lochia (similar to period), no distention, appropriately TTP Fundus firm & at: below umbilicus Psychiatric: A&Ox3, normal affect Result Diagrams: 02/22/18 06:16 Additional Labs: Post Labs Blood Type O POSITIVE 02/20/18 01:30 Hep Bs Antigen Non-Reactive S/CO (NonReactive) 02/20/18 01:30 Rubella IgG Antibody 9.81 index (Immune >0.99) 02/20/18 01:30 (1) Term Code(s): Z34.80 - ENCOUNTER FOR SUPRVSN OF NORMAL , UNSP TRIMESTER Status: Acute (2) GDM, class A2 Code(s): O24.419 - GESTATIONAL DIABETES MELLITUS IN , UNSP CONTROL Status: Acute (3) Iron deficiency anemia Code(s): D50.9 - IRON DEFICIENCY ANEMIA, UNSPECIFIED Status: Acute - Assessment/Plan 32 year old G4 now P3013 delivered TAGA M infant at 7:46 on 02/21 via . Apgars 9/9 1. Term , delivered - S/p . PPD #2 - Routine PP care - Contraception: OCP's - D/c home today. Follow up in clinic in 2 weeks. 2. A2 GDM - Not well controlled during - d/c'd metformin post delivery - Will need to check for DM type II 6-12 weeks via GTT 3. Iron deficiency anemia - H/H this AM pending; prior to delivery Hg 9.3 - Minimal blood loss during delivery. Minimal lochia. 4. GBS positive - Penicillin allergic - s/p 3 doses of Vancomycin, adequately treated Dispo: Stable. d/c home today. <Anabel Alvarez - Last Filed: 02/23/18 10:32> Vital Signs (12 hours) Temp Pulse Resp BP Pulse Ox 02/23/18 08:57 97.5 F L 74 24 H 122/76 98 Weight Weight 123.377 kg Result Diagrams: 02/22/18 06:16 Additional Labs: Post Labs Blood Type O POSITIVE 02/20/18 01:30 Hep Bs Antigen Non-Reactive S/CO (NonReactive) 02/20/18 01:30 Rubella IgG Antibody 9.81 index (Immune >0.99) 02/20/18 01:30 <Ann Borja - Last Filed: 02/23/18 11:19> Attending Addendum - Attending Addendum Date/Time: 02/23/18 1118 I personally evaluated the patient and discussed the management with Dr. Alvarez I agree with the History, Examination, Assessment and Plan documented above with any addition or exceptions noted below. Stable PPD #2. Meeting appropriate milestones. D/C to home today <Ann Borja - Last Filed: 02/23/18 11:19>
== END 2018-02-23 14:45 | disposition home or self-care (01) | DRG 806 ==
LOC: L&D 23:58 → 3SW 02-21 15:16
PROVIDERS: ADMIT Family Medicine; ATTEND Family Medicine
PROC: 10E0XZZ Delivery of Products of Conception, External Approach (ICD-10-PCS; principal; 2018-02-21)
PROC: 0KQM0ZZ Repair Perineum Muscle, Open Approach (ICD-10-PCS; 2018-02-21)
DX: O24.429 Gestational diabetes mellitus in childbirth, unspecified control (principal); O71.4 Obstetric high vaginal laceration alone; Z37.0 Single live birth; O98.82 Other maternal infectious and parasitic diseases complicating childbirth; Z3A.38 38 weeks gestation of pregnancy; O69.81X0 Labor and delivery complicated by cord around neck, without compression, not applicable or unspecified; B95.1 Streptococcus, group B, as the cause of diseases classified elsewhere; Z79.84 Long term (current) use of oral hypoglycemic drugs; O99.013 Anemia complicating pregnancy, third trimester; D50.9 Iron deficiency anemia, unspecified; O36.63X0 Maternal care for excessive fetal growth, third trimester, not applicable or unspecified; Z88.0 Allergy status to penicillin
CPT/HCPCS: 36415; 36416; 51702; 85027; 86762; 86780; 86850; 86900; 86901; 87340; 88307; J0595; J0670; J0702; J2001; J3370

== ENCOUNTER 2019-10-17 22:20 | Emergency (ER) | payer OTHER, SELFPAY ==
[2019-10-18 12:25] LABS: SARS-CoV-2 MS2 Positive; SARS-CoV-2 N Gene Negative; SARS-CoV-2 S Gene Negative; SARS-CoV-2 by NAA Not Detected (NotDetected); SARS-CoV-2 orf1ab Negative
== END 2019-10-17 23:07 | disposition home or self-care (01) ==
LOC: ERS 22:20
DX: J02.9 Acute pharyngitis, unspecified (principal); R19.7 Diarrhea, unspecified; R05 Cough; R09.81 Nasal congestion; Z20.828 Contact with and (suspected) exposure to other viral communicable diseases; F17.210 Nicotine dependence, cigarettes, uncomplicated
CPT/HCPCS: 87635; 99283; U0003

== ENCOUNTER 2020-07-04 02:30 | Emergency (ER) | payer SELFPAY | END 2020-07-04 05:31 | disposition left against medical advice (07) | LOC: ERS 02:30 | DX: Z53.21 Procedure and treatment not carried out due to patient leaving prior to being seen by health care provider (principal) ==

== ENCOUNTER 2020-08-25 02:46 | Emergency (ER) | payer MEDICAID, SELFPAY | END 2020-08-25 04:07 | disposition home or self-care (01) | LOC: ERS 02:46 | DX: L30.9 Dermatitis, unspecified (principal); F17.210 Nicotine dependence, cigarettes, uncomplicated | CPT/HCPCS: 99281 ==

== ENCOUNTER 2022-02-09 19:40 | Emergency (ER) | payer MEDICAID, SELFPAY ==
[2022-02-09] MEDS ORDERED: Acetaminophen 500 MG TAB ONE (20:27)
[2022-02-09 21:20] LABS: SARS-CoV-2 NAA Rapid Test Not Detected (NotDetected)
== END 2022-02-09 22:59 | disposition home or self-care (01) ==
LOC: ERS 19:40
DX: J11.1 Influenza due to unidentified influenza virus with other respiratory manifestations (principal); J90 Pleural effusion, not elsewhere classified; F17.210 Nicotine dependence, cigarettes, uncomplicated; Z20.822 Contact with and (suspected) exposure to COVID-19
CPT/HCPCS: 71045

== ENCOUNTER 2023-01-13 21:07 | Emergency (ER) | payer SELFPAY | END 2023-01-13 22:42 | disposition home or self-care (01) | LOC: ERS 21:07 | DX: S83.91XA Sprain of unspecified site of right knee, initial encounter (principal); F17.210 Nicotine dependence, cigarettes, uncomplicated; W18.2XXA Fall in (into) shower or empty bathtub, initial encounter ==